=== PATIENT | male | born 1955 | race Caucasian/White ===

== ENCOUNTER 2020-07-16 20:01 | Inpatient (IN) | payer MEDICARE, MEDICAID, SELFPAY ==
[2020-07-16] VITALS (25 sets, daily range): BP systolic 71–165; BP diastolic 44–89; PULSE 0–122; RESP 0–21; TEMP 35; O2SAT 10–100
--- NOTE | ~2020-07-16 | CT_ITS ---
EXAMINATION: CT brain wo con INDICATION: Cardiac arrest COMPARISON: None TECHNIQUE: Standard unenhanced head CT. The dose-length product (DLP) was 681.00 mGy-cm. The mA was a djusted according to patient size. Iterative reconstruction technique was employed. FINDINGS: There is no acute intraparenchymal hemorrhage. No evidence of mass lesion. No evidence of a cute infarction. There is mild periventricular and subcortical hypodensity probably related to small vessel ischemic disease. There is mild prominence of the sulci and ventricles related to cerebral atr ophy. Intracranial calcified cerebral atherosclerosis is noted. There are no extra-axial collections. There is no mass effect or midline shift. Phthisis bulbi of the right globe is noted. There is comp lete opacification of the left sphenoid sinus and moderate opacification of the remaining paranasal s inuses. IMPRESSION: 1. No acute intracranial abnormality. 2. Sinus disease. Reviewed, dictated and finalized at location A.
--- NOTE | ~2020-07-16 | XR_ITS ---
EXAMINATION: XR chest 1V portable EXAM DATE: 07/19/2020 06:00 INDICATION: Cardiac arrest. TECHNIQUE: Portable AP frontal chest x-ray was obtained. Comparison is made to prior examination from 07/18/2020. FINDINGS: Endotracheal tube tip is 4 centimeters above the rakesh (ideal range is between 2 to 5 cm). Feeding tube is in position. There is right IJ venous line. Again there is moderate amount of bibasilar indistinct reticulation. Some more confluence in the infr ahilar regions. Probably edema and/or pneumonia. There is no pneumothorax suspected. Cardiomedia stinal silhouette is normal. The bones and soft tissues are unremarkable. IMPRESSION: 1. Line(s) and tube(s) in position. 2. Moderate amount of basilar indistinct reticulation with infrahilar confluence. Consider pneumonia and/or edema. Reviewed, dictated and finalized at location A. IMPRESSION: 1. Line(s) and tube(s) in position. 2. Moderate amount of basilar indistinct reticulation with infrahilar confluen ce. Consider pneumonia and/or edema.
--- NOTE | ~2020-07-16 | XR_ITS ---
EXAMINATION: XR chest 1V portable EXAM DATE: 07/20/2020 06:29 INDICATION: Cardiac arrest. TECHNIQUE: Portable AP frontal chest x-ray was obtained. Comparison is made to prior examination from 07/19, 07/18/2020. FINDINGS: Endotracheal tube tip is 4 centimeters above the rakesh (ideal range is between 2 to 5 cm) . Feeding tube is in position. There is right IJ venous line. There is moderate amount of bibasilar indistinct reticulation. Some more confluence in the infrahilar regions. Probably edema and/or pneumonia. There is no pneumothorax suspected. Cardiomediastinal silhouette is normal. The bones and soft tissues are unremarkable. There is no significant interval change. IMPRESSION: 1. Line(s) and tube(s) in position. 2. Moderate amount of basilar indistinct reticulation with infrahilar confluence. Consider pneumonia and/or edema. Reviewed, dictated and finalized at location A. IMPRESSION: 1. Line(s) and tube(s) in position. 2. Moderate amount of basilar indistinct reticulation with infrahilar confluen ce. Consider pneumonia and/or edema.
--- NOTE | ~2020-07-16 | XR_ITS ---
EXAMINATION: XR chest ET placement, XR abdomen NG/feed tube insert DATE: 07/16/2020 20:30 INDICATION: CODE BLUE. Endotracheal tube and orogastric tube placement. TECHNIQUE: 1. Frontal view of the chest was obtained. 2. Supine frontal view of the abdomen was obtained. COMPARISON: Chest radiograph dated 09/15/2018 FINDINGS: Chest: Endotracheal tube tip 1.3 cm above the rakesh. Mildly increased perihilar interstitial pattern with a dditional streaky airspace opacities in the left lower lung zone. No pleural effusion or pneumothorax . Cardiomegaly. Abdomen: Nasogastric tube tip in proximal side port in the body of the stomach. High attenuation material in t he epigastric region. Multiple gas-filled but not frankly dilated loops of bowel clustered in the alejandra tral abdomen with increased density at the flanks suggestive of ascites. IMPRESSION: 1. The tracheal tube and nasogastric tube in expected positions. 2. Opacities in the perihilar regions and left lower lung zone which could represent mild pulmonary e karen, atelectasis, pneumonia or some combination thereof. 3. Appearance suggesting ascites in the abdomen. Reviewed, dictated and finalized at location A. IMPRESSION: 1. The tracheal tube and nasogastric tube in expected positions. 2. Opacities in the perihilar regions and left lower lung zone which could repr esent mild pulmonary edema, atelectasis, pneumonia or some combination thereof. 3. Appearance suggesting ascites in the abdomen.
--- NOTE | ~2020-07-16 | XR_ITS ---
EXAMINATION: XR chest port-a-cath/central DATE: 07/16/2020 21:07 INDICATION: Central line placement TECHNIQUE: frontal view of the chest was obtained. COMPARISON: Chest radiograph dated 07/16/2020 at 8:23 PM FINDINGS: Right internal jugular central venous catheter with distal tip in the high right atrium. Endotracheal tube tip 3.3 cm from the rakesh. Nasogastric tube extends below the left hemidiaphragm with distal tip collimated off the study. Improvement in the prior perihilar opacities. Residual streaky airspace opacities in the left lower l ashwin zone. No pleural effusion or pneumothorax. The cardiomediastinal silhouette is normal. IMPRESSION: 1. Right internal jugular central venous catheter with tip in the high right atrium. No pneumothorax. 2. Improvement in perihilar edema with residual streaky opacities in the left lower lung zone which c ould represent atelectasis, aspiration or pneumonia. Reviewed, dictated and finalized at location A. IMPRESSION: 1. Right internal jugular central venous catheter with tip in the high right at rium. No pneumothorax. 2. Improvement in perihilar edema with residual streaky opacities in the left l ower lung zone which could represent atelectasis, aspiration or pneumonia.
--- NOTE | ~2020-07-16 | XR_ITS ---
EXAMINATION: XR chest 1V portable EXAM DATE: 07/18/2020 05:27 INDICATION: Cardiac arrest. Respiratory failure. TECHNIQUE: Portable AP frontal chest x-ray was obtained. Comparison is made to prior examination from 07/16/2020. FINDINGS: Endotracheal tube tip is 3 centimeters above the rakesh (ideal range is between 2 to 5 cm). There is a nasogastric tube seen with tip collimated off the study, but below the left hemidiaphrag m. There is a right-sided IJ venous line. Interval development of moderate amount of bilateral indistinct reticulation and development of small left pleural effusion. There is no pneumothorax suspected. The cardiomediastinal silhouette is prominent but magnified on this AP technique. The bones and soft tissues are unremarkable. IMPRESSION: 1. Line(s) and tube(s) in position. 2. Development of moderate bilateral indistinct reticulation, acute edema and/or pneumonia. 3. Development of small left pleural effusion. Reviewed, dictated and finalized at location B. IMPRESSION: 1. Line(s) and tube(s) in position. 2. Development of moderate bilateral indistinct reticulation, acute edema and/ or pneumonia. 3. Development of small left pleural effusion.
--- NOTE | 2020-07-16 20:13 | ED.GENADULT ---
HPI - General Adult General Chief complaint: Cardiac Arrest/CPR Stated complaint: cardiac arrest History of Present Illness HPI narrative: Patient is a 64-year-old male who presents ER as a cardiac arrest from his intermediate. Patient was eating a hamburger when he began to start choking. His roommate went and contacted intermediate staff who then went in to try to help him. Patient then went into cardiac arrest. EMS arrived after patient had been in cardiac arrest for 20 to 30 minutes. Upon arrival here patient has had 40 minutes of downtime. She has had several rounds epinephrine and is also been intubated in the field by EMS. Patient is unresponsive at this time and receiving CPR. Accu-Chek in 130s for EMS. There is no paperwork her name on the individual when he had originally been sent with EMS. After contacting intermediate we found out patient has history of liver failure and also has hepatocellular carcinoma. We are attempting to contact family. Their was no CODE STATUS communicated. Related Data Home Medications Medication Instructions Recorded Confirmed benztropine 1 mg PO HS 07/17/20 07/17/20 calcium carbonate 500 mg PO DAILY 07/17/20 07/17/20 calcium carbonate-vitamin D3 1 tablet PO DAILY 07/17/20 07/17/20 [Os-Rian 500 + D3] cholecalciferol (vitamin D3) 25 mcg PO DAILY 07/17/20 07/17/20 [Vitamin D3] haloperidol decanoate 150 mg IM MONTHLY 07/17/20 07/17/20 insulin glargine [Lantus U-100 16 unit SUBCUT 07/17/20 07/17/20 Insulin] insulin lispro 5 unit SUBCUT TIDWMEAL 07/17/20 07/17/20 lactulose [Enulose] 67.5 g PO TID 07/17/20 07/17/20 lisinopril 10 mg PO DAILY 07/17/20 07/17/20 melatonin 9 mg PO 07/17/20 07/17/20 pantoprazole 20 mg PO QAM 07/17/20 07/17/20 potassium chloride 40 meq PO DAILY 07/17/20 07/17/20 propranolol 60 mg PO DAILY 07/17/20 07/17/20 rifaximin [Xifaxan] 550 mg PO BID 07/17/20 07/17/20 risperidone 4 mg PO 07/17/20 07/17/20 sennosides [senna] 8.6 mg PO HS PRN 07/17/20 07/17/20 tamsulosin 0.4 mg PO HS 07/17/20 07/17/20 Allergies Allergy/AdvReac Type Severity Reaction Status Date / Time codeine Allergy Unknown Unknown Verified 07/16/20 21:36 Review of Systems Review of Systems: ROS unobtainable: Yes unobtainable due to endotracheal tube PMFSH Past Medical History Medical History (Updated 07/17/20 @ 06:59 by Matt Goins MD) Chronic anemia Hepatitis C Hepatocellular carcinoma Liver failure Thrombocytopenia Umbilical hernia Surgical History Surgical History Surgical history unknown Family History Family History Other Unknown family medical history Social History Social History Social History: the patient's family history surgical history and social history are unobtainable. He is intubated and unresponsive. Smoking status: Unknown if ever smoked Alcohol intake: unknown Substance use: unknown Exam Narrative: Exam Narrative: GENERAL: Chronically ill-appearing, well-nourished, and unresponsive.. HEAD: Normocephalic, atraumatic. EYES: Left pupil fixed and dilated. Right pupil scarred. No extraocular movements. ENT: Mucous membranes moist. CHEST: Clear to auscultation with assisted ventilation. No respiratory distress. HEART: No pulses. Cool and pale extremities. ABDOMEN: Firm and distended with pitting edema to the lower abdomen. EXTREMITIES: No deformity or spontaneous movement. 2+ edema. 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 Course Vital Signs Vital signs: Vital Signs Pulse Rate 0 L 07/16/20 20:05 Respiratory Rate 0 L 07/16/20 20:05 Pulse Oximetry 10 L 07/16/20 20:05 Temperature 90.4 F L 07/17/20 06:00 Pulse Rate 67 07/17/20 06:51 Respiratory Rate 17 07/17/20 06:00 Blood Pressure 108/66 07/17/20 06:51 Pulse Oximetry 100 07/17/20 06:00
--- NOTE | 2020-07-16 20:57 | ECG_ITS ---
Measurements Intervals [place] Rate: 43 P: 17 WI: 147 QRS: 14 QRSD: 101 T: -6 QT: 498 QTc: 425 Interpretive Statements SINUS BRADYCARDIA INCOMPLETE RIGHT BUNDLE BRANCH BLOCK LOW QRS VOLTAGE- DIFFUSE LEADS BORDERLINE T WAVE ABNORMALITY- INFERIOR LEADS ABNORMAL ECG Electronically Signed On 07-17-2020 7:01:46 CDT by Jem Linton D.O.
[2020-07-16 21:08] LABS: Basophils Absolute Auto 0.1 K/mm3 (0.0-0.1); Basophils Percent Auto 0.5 % (0.2-1.2); Eosinophils Absolute Auto 0.2 K/mm3 (0-0.3); Eosinophils Percent Auto 0.8 % (0-4.4); Immature Granulocyte Absolute 1.05 K/mm3 (0.00-0.031); Immature Granulocyte Percent A 5.4 % (0-0.5); Immature Platelet Fraction Pct 2.4 % (0.9-11.2); Lymphocytes Absolute Auto 2.83 K/mm3 (0.9-3.2); Lymphocytes Percent Auto 14.6 % (18.3-44.2); Mean Corpuscular HGB Conc 33.3 g/dl (32-36); Mean Corpuscular Hemoglobin 31.1 pg (26-34); Mean Corpuscular Volume 93.3 fl (80-100); Mean Platelet Volume 9.1 fl (7.4-10.4); Monocytes Absolute Auto 0.7 K/mm3 (0.1-0.6); Monocytes Percent Auto 3.4 % (2.6-8.5); Neutrophils Absolute Auto 14.6 K/mm3 (1.3-6.7); Neutrophils Percent Auto 75.3 % (45.5-73.1); Nucleated Red Blood Cells Absolute Auto 0.1 K/mm3 (0.0-0.012); Nucleated Red Blood Cells Perc 0.3 % (0.0-0.2); Platelet Count Result 59 k/mm3 (150-375); Red Blood Count 3.86 M/mm3 (4.6-6.20); White Blood Count 19.4 K/mm3 (4.5-10.0)
[2020-07-16 21:15] LABS: INR 2.9; Prothrombin Time 30.1 Seconds (11.1-14.7)
[2020-07-16 21:16] LABS: Partial Thromboplastin Time 59.1 SECONDS (22.3-36.8)
[2020-07-16 21:19] LABS: Lactic Acid Reflex 7.7 mmol/L (0.7-2.1)
[2020-07-16 21:34] LABS: Alanine Aminotransferase 62 U/L (4-50); Albumin Level 1.9 g/dL (3.5-5.1); Alkaline Phosphatase 190 U/L (38-126); Anion Gap 11 mmol/L (8-16); Aspartate Amino Transferase 224 U/L (17-59); Bilirubin Direct 0.2 mg/dL (0-0.3); Bilirubin,Total 3.3 mg/dL (0.2-1.3); Blood Urea Nitrogen 13 mg/dL (9-20); Calcium 6.9 mg/dL (8.4-10.2); Carbon Dioxide 19 mmol/L (22-30); Chloride 99 mmol/L (98-107); Estimated CRCL calculation 92 ml/min; Estimated Glomerular Filt Rate > 60; Glucose 92 mg/dL (75-110); Potassium 4.5 mmol/L (3.4-5.0); Sodium 129 mmol/L (137-145)
[2020-07-16] MEDS: NOREPINEPHRINE 8 MG/D5W 250 ML 8 MG/250 ML BAG 9.4 MG IV CONT (21:38)
[2020-07-16 21:41] LABS: Alveolar/Arterial O2 Gradient 318.6 mmHg; Base Excess ABG -10.2 mEq/l (+/-2.0); Carboxyhemoglobin 0.7 % THb (0-2.0); Fractional Inspired Oxygen 100 %; HCO3 ABG 15.2 mEq/l (22.0-26.0); Methemoglobin ABG 0.5 %THb (0-1.5); Oxygen Content ABG 18.6 %vol (16.0-22.0); Oxygen Saturation ABG 99.7 % (95.0-100.0); Oxyhemoglobin 98.1 % THb (90.0-100.0); PCO2 ABG 32.1 mmHg (35.0-45.0); PO2 ABG 362.3 mmHg (80.0-100.0); PO2 FiO2 Ratio Arterial Blood 3.62 %; Reduced Hemoglobin 0.7 %THb (0-5.0); Total Hemoglobin 12.8 g/dL (12.0-18.0); pH ABG 7.292 (7.350-7.450)
[2020-07-16 21:42] LABS: Device VENTILATOR; Modified Allen's Test Pass; Site Drawn LEFT RADIAL
[2020-07-16 21:43] LABS: Arterial Blood Gas PEEP 5 cmH2O; Arterial Blood Gas Tidal Volume 500 ml; Arterial Blood Gas Vent Mode CMV; Arterial Blood Gas Ventilator rate 14 /MIN
[2020-07-16 21:45] LABS: Albumin Level 1.9 g/dL (3.5-5.1); Alkaline Phosphatase 186 U/L (38-126); Anion Gap 12 mmol/L (8-16); Aspartate Amino Transferase 221 U/L (17-59); Bilirubin,Total 3.4 mg/dL (0.2-1.3); Blood Urea Nitrogen 13 mg/dL (9-20); Carbon Dioxide 19 mmol/L (22-30); Chloride 99 mmol/L (98-107); Creatine Kinase 280 U/L (55-170); Estimated CRCL calculation 92 ml/min; Estimated Glomerular Filt Rate > 60; Glucose 93 mg/dL (75-110); Magnesium 1.9 mg/dL (1.6-2.3); Potassium 4.5 mmol/L (3.4-5.0); Sodium 130 mmol/L (137-145)
[2020-07-16 21:47] LABS: Alanine Aminotransferase 64 U/L (4-50)
[2020-07-16 21:50] LABS: Troponin I 0.013 ng/mL (0.000-0.034)
[2020-07-16 21:53] LABS: Glucose Point of Care 460 (65-105)
[2020-07-16 22:07] LABS: Ammonia 87 umol/L (9-30)
[2020-07-16 22:20] LABS: Lactic Acid Reflex 5.6 mmol/L (0.7-2.1)
--- NOTE | 2020-07-16 22:33 | PC.NURSE ---
late entry see code sheet
[2020-07-16] MEDS: NOREPINEPHRINE 8 MG/D5W 250 ML 8 MG/250 ML BAG 18.8 MG IV CONT (23:00)
--- NOTE | 2020-07-16 23:00 | ADMGEN ---
This patient, Tip Monroy, was admitted to Intensive Care Unit-6. Patient/family oriented to hospital policies and general routines including ID bracelet, bed and alarms, visiting hours, pain management, procedures, bathroom and other care routines, personal items, smoking policy, room service/diet, and visiting hours. Valuables list has been completed. Information on how to activate the Rapid Response Team has been discussed. Patient/Family are encouraged to report perceived risks to care and to ask questions if they do not understand what they are told or what they should do.
[2020-07-17] VITALS (48 sets, daily range): BP systolic 100–148; BP diastolic 36–131; PULSE 36–81; RESP 12–32; TEMP 32.1–34.8; O2SAT 94–100; BMI 35.4
[2020-07-17 00:01] LABS: Reflex Lactic Acid Yes or No Add Lactic
[2020-07-17 00:14] LABS: Glucose Point of Care 122 (65-105)
[2020-07-17 00:28] LABS: Lactic Acid 3.7 mmol/L (0.7-2.1)
--- NOTE | 2020-07-17 02:27 | PM.IMHP ---
H&P: HPI History of Present Illness Date/Time: 07/17/20 00:30 Chief complaint: Cardiac arrest after choking Narrative: Tip Monroy is a 64 year old male with a past medical history of hepatitis C, cirrhosis and hepatocellular carcinoma who presented to the ER via EMS from [facility] due to an episode of aspiration resulting in cardiac arrest. The patient was eating a cheeseburger when he choked. His roommate called nursing staff who tried to assist him. The patient went into cardiac arrest. When EMS arrived [facility] the [facility] the patient had had a down time of about 20-30 minutes. On arrival to the ER the patient had been down for approximately 40 minutes. He had several rounds of epinephrine and was intubated in the field after EMS removed cheese burger from the patient's airway with forceps. The patient received 2 rounds of epinephrine in the ER without change in his rhythm. The patient arrived to our facility without of pulse. the patient had a couple rounds of CPR in the ER with return of perfusing rhythm. The patient then became hypotensive and was initiated on Levophed. The patient's heart rate dropped between 35 and 40 in the ER and has remained low. Epinephrine was added to the patient's medications trying to increase his heart rate. He is heart rate remained low at 35. Subsequently dopamine has been ordered and will titrate Levophed downward an increase dopamine an effort to bring patient's heart rate up. The patient is known to have diffuse bleeding from around IJ site, he has bloody drainage from his OG tube as well. Nursing staff continues to suction bits of hamburger from the patient's nose and oropharynx. Review of Systems Review of Systems: ROS unobtainable: Yes unobtainable due to endotracheal tube and unobtainable due to medical condition ( anoxic brain injury) [facility] Past Medical History Medical History (Updated 07/17/20 @ 03:32 by Melinda Ortega DO) Chronic anemia Hepatitis C Hepatocellular carcinoma Liver failure Thrombocytopenia Umbilical hernia Surgical History Surgical History Surgical history unknown Family History Family History Other Unknown family medical history Social History Social History Social History: the patient's family history surgical history and social history are unobtainable. He is intubated and unresponsive. Smoking status: Unknown if ever smoked Alcohol intake: unknown Substance use: unknown Meds Home Medications and Allergies Home Medications Medication Instructions Recorded Confirmed Type cholecalciferol (vitamin D3) 25 mcg PO DAILY 07/17/20 07/17/20 History [Vitamin D3] insulin glargine [Lantus U-100 16 unit SUBCUT HS 07/17/20 07/17/20 History Insulin] insulin lispro 5 unit SUBCUT TIDWMEAL 07/17/20 07/17/20 History propranolol 60 mg PO DAILY 07/17/20 07/17/20 History rifaximin [Xifaxan] 550 mg PO BID 07/17/20 07/17/20 History risperidone 4 mg PO HS 07/17/20 07/17/20 History sennosides [senna] 8.6 mg PO HS PRN 07/17/20 07/17/20 History tamsulosin 0.4 mg PO HS 07/17/20 07/17/20 History Allergies Allergy/AdvReac Type Severity Reaction Status Date / Time codeine Allergy Unknown Unknown Verified 07/16/20 21:36 Vital Signs Vital Signs - 24 hr 07/16/20 20:05 07/16/20 20:08 07/16/20 20:10 Pulse Rate 0 L 105 H 122 H Respiratory Rate 0 L 21 H 20 Blood Pressure 130/89 Pulse Oximetry 10 L 07/16/20 20:15 07/16/20 20:16 07/16/20 20:18 Pulse Rate 113 H 111 H 106 H Respiratory Rate 16 15 15 Blood Pressure 79/68 L 113/78 Pulse Oximetry 100 07/16/20 20:30 07/16/20 20:31 07/16/20 20:36 Pulse Rate 60 60 56 L Respiratory Rate 14 16 14 Blood Pressure 79/54 L 74/50 L Pulse Oximetry 100 100 100 07/16/20 20:40 07/16/20 20:45 07/16/20 2
[2020-07-17] MEDS: DOPamine 400 MG/D5W 250 ML 400 MG/250 ML BAG 7.4 MG IV CONT (03:02)
[2020-07-17 03:32] LABS: Hematocrit 32.3 % (42.0-52.0); Hemoglobin 11.5 g/dL (14.0-18.0); Immature Platelet Fraction Pct 2.4 % (0.9-11.2); Mean Corpuscular HGB Conc 35.6 g/dl (32-36); Mean Corpuscular Hemoglobin 31.9 pg (26-34); Mean Corpuscular Volume 89.7 fl (80-100); Mean Platelet Volume 8.8 fl (7.4-10.4); Platelet Count Result 77 k/mm3 (150-375); Red Cell Distribution Width 17.2 % (11.5-14.5); White Blood Count 18.8 K/mm3 (4.5-10.0)
--- NOTE | 2020-07-17 03:33 | P.PCNBED_ITS ---
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 Despite multiple full attempts with ultrasound guidance a I was unable to obtain arterial access. Subsequently the procedure was converted to a left femoral arterial line. Although I obtained arterial access on multiple attempts the guidewire would not feed on the 1st 2 attempts. On the final attempt guidewire fed without difficulty and arterial line was placed over guidewire. Patient had brisk return of arterial blood. The patient's arterial blood pressures are correlating with his cuff pressures. Line was secured with suture as discussed above. An attempt was made to who maintained sterile field but due to complicated procedure course sterile field was contaminated prior to conclusion of procedure.
[2020-07-17 03:42] LABS: Creatine Kinase 1422 U/L (55-170); Magnesium 1.7 mg/dL (1.6-2.3)
[2020-07-17 03:43] LABS: INR 3.7; Lactic Acid Reflex 3.5 mmol/L (0.7-2.1); Prothrombin Time 35.8 Seconds (11.1-14.7)
[2020-07-17 03:55] LABS: Glucose Point of Care 108 (65-105)
[2020-07-17 03:56] LABS: Fibrinogen 75 mg/dl (215-510)
[2020-07-17 04:18] LABS: D Dimer > 20.00 ug/mL (<0.48)
--- NOTE | 2020-07-17 05:00 | ECG_ITS ---
Measurements Intervals [place] Rate: 54 P: RI: 0 QRS: 19 QRSD: 93 T: -7 QT: 479 QTc: 456 Interpretive Statements SINUS BRADYCARDIA LOW QRS VOLTAGE IN LIMB LEADS BORDERLINE T WAVE ABNORMALITY- INFERIOR LEADS PROLONGED QT INTERVAL BASELINE WANDER- V4 ABNORMAL ECG Electronically Signed On 07-17-2020 8:36:22 CDT by Jem Linton D.O.
[2020-07-17 05:07] LABS: Glucose Point of Care 137 (65-105)
[2020-07-17] MEDS: CENTRAL LINE FLUSH 10 ML IV PUSH ×4 (06:06→20:05)
[2020-07-17 06:13] LABS: Alveolar/Arterial O2 Gradient 423.8 mmHg; Base Excess ABG -9.1 mEq/l (+/-2.0); Carboxyhemoglobin 0.3 % THb (0-2.0); Fractional Inspired Oxygen 90 %; HCO3 ABG 17.9 mEq/l (22.0-26.0); Methemoglobin ABG 0.5 %THb (0-1.5); Oxygen Content ABG 17.6 %vol (16.0-22.0); Oxygen Saturation ABG 98.9 % (95.0-100.0); Oxyhemoglobin 97.5 % THb (90.0-100.0); PCO2 ABG 42.9 mmHg (35.0-45.0); PO2 ABG 173.9 mmHg (80.0-100.0); PO2 FiO2 Ratio Arterial Blood 1.93 %; Reduced Hemoglobin 1.7 %THb (0-5.0); Site Drawn ARTLINE; Total Hemoglobin 12.6 g/dL (12.0-18.0); pH ABG 7.238 (7.350-7.450)
[2020-07-17 06:14] LABS: Arterial Blood Gas PEEP 5 cmH2O; Arterial Blood Gas Tidal Volume 450 ml; Arterial Blood Gas Vent Mode CMV; Arterial Blood Gas Ventilator rate 14 /MIN; Device VENTILATOR
[2020-07-17 06:43] LABS: Glucose Point of Care 108 (65-105)
[2020-07-17] MEDS: SODIUM BICARBONATE 8.4% 100 MEQ in WATER, STERILE FOR INJECTION 1,000 ML 75 MEQ IV CONT (08:15)
[2020-07-17 08:22] LABS: Glucose Point of Care 100 (65-105)
[2020-07-17 08:44] LABS: Hematocrit 31.6 % (42.0-52.0); Hemoglobin 11.1 g/dL (14.0-18.0); Immature Platelet Fraction Pct 3.6 % (0.9-11.2); Mean Corpuscular HGB Conc 35.1 g/dl (32-36); Mean Corpuscular Volume 88.3 fl (80-100); Mean Platelet Volume 9.8 fl (7.4-10.4); Platelet Count Result 68 k/mm3 (150-375); Red Blood Count 3.58 M/mm3 (4.6-6.20); Red Cell Distribution Width 17.2 % (11.5-14.5); White Blood Count 15.5 K/mm3 (4.5-10.0)
[2020-07-17] MEDS: SODIUM CHLORIDE 0.9% IV 1,000 ML 999 ML IV CONT (08:45)
[2020-07-17] MEDS: ALBUMIN HUMAN 25% 12.5 GM/50ML 50 ML IVPB ×3 (08:45→20:04)
[2020-07-17 08:53] LABS: INR 3.9; Prothrombin Time 37.6 Seconds (11.1-14.7)
[2020-07-17 08:54] LABS: Partial Thromboplastin Time 49.6 SECONDS (22.3-36.8)
[2020-07-17 08:55] LABS: Alanine Aminotransferase 85 U/L (4-50); Albumin Level 1.7 g/dL (3.5-5.1); Alkaline Phosphatase 108 U/L (38-126); Anion Gap 6 mmol/L (8-16); Aspartate Amino Transferase 314 U/L (17-59); Bilirubin,Total 4.6 mg/dL (0.2-1.3); Blood Urea Nitrogen 20 mg/dL (9-20); Calcium 6.8 mg/dL (8.4-10.2); Carbon Dioxide 22 mmol/L (22-30); Chloride 99 mmol/L (98-107); Estimated CRCL calculation 76 ml/min; Estimated Glomerular Filt Rate > 60; Glucose 126 mg/dL (75-110); Magnesium 1.6 mg/dL (1.6-2.3); Phosphorus 4.8 mg/dL (2.5-4.5); Potassium 4.2 mmol/L (3.4-5.0); Sodium 127 mmol/L (137-145)
[2020-07-17] MEDS: PHYTONADIONE ADULT INJ 10 MG in DEXTROSE 5% IN WATER 50 ML 100 MG IVPB (08:58)
[2020-07-17 08:59] LABS: Lactic Acid Reflex 4.2 mmol/L (0.7-2.1)
[2020-07-17 09:05] LABS: Creatine Kinase 2375 U/L (55-170)
[2020-07-17] MEDS: PANTOPRAZOLE SODIUM IV 40 MG VIAL IV PUSH ×2 (09:13→20:06)
[2020-07-17 09:15] LABS: Alveolar/Arterial O2 Gradient 282.2 mmHg; Base Excess ABG -7.1 mEq/l (+/-2.0); Carboxyhemoglobin 0.2 % THb (0-2.0); Fractional Inspired Oxygen 60 %; HCO3 ABG 19.6 mEq/l (22.0-26.0); Methemoglobin ABG 0.5 %THb (0-1.5); Oxygen Content ABG 15.2 %vol (16.0-22.0); Oxygen Saturation ABG 96.4 % (95.0-100.0); Oxyhemoglobin 94.6 % THb (90.0-100.0); PCO2 ABG 44.4 mmHg (35.0-45.0); PO2 ABG 96.8 mmHg (80.0-100.0); PO2 FiO2 Ratio Arterial Blood 1.61 %; Reduced Hemoglobin 4.7 %THb (0-5.0); Total Hemoglobin 11.3 g/dL (12.0-18.0)
[2020-07-17 09:17] LABS: Arterial Blood Gas PEEP 5 cmH2O; Arterial Blood Gas Vent Mode CMV; Arterial Blood Gas Ventilator rate 14 /MIN; Device VENTILATOR; Site Drawn ARTLINE; pH ABG 7.263 (7.350-7.450)
[2020-07-17 09:18] LABS: Arterial Blood Gas Tidal Volume 450 ml
[2020-07-17 09:25] LABS: Glucose Point of Care 125 (65-105)
[2020-07-17 10:23] LABS: Glucose Point of Care 138 (65-105)
[2020-07-17] MEDS: levETIRAcetam IV 750 MG in DEXTROSE 5% 100 ML 430 MG IVPB ×2 (10:25→20:04)
[2020-07-17 11:05] LABS: Glucose Point of Care 147 (65-105)
[2020-07-17 12:08] LABS: Glucose Point of Care 141 (65-105)
--- NOTE | 2020-07-17 13:00 | ECG_ITS ---
Measurements Intervals [place] Rate: 67 P: 19 UT: 156 QRS: 6 QRSD: 103 T: -8 QT: 458 QTc: 485 Interpretive Statements SINUS RHYTHM DELAYED PRECORDIAL R/S TRANSITION MINIMAL Q WAVES- HIGH LATERAL LEADS BORDERLINE T WAVE ABNORMALITY- INFERIOR LEADS BORDERLINE ECG Electronically Signed On 07-17-2020 13:43:40 CDT by Jem Linton D.O.
[2020-07-17 13:06] LABS: Glucose Point of Care 107 (65-105)
--- NOTE | 2020-07-17 13:21 | WPDCNINT ---
Assessment and Plan Assessment and plan (1) Cardiac arrest with successful resuscitation: Code(s): I46.9 - Cardiac arrest, cause unspecified Status: Acute Assessment and Plan: cardiac arrest likely related to choking/asphyxia / airway obstruction - patient had ROSC after approximately 40 minutes down time - currently on hypothermia protocol, has a central line and arterial line - CT head did not show any acute intracranial abnormalities - patient has been having intermittent myoclonic jerking, started Keppra (2) Acute respiratory failure: Code(s): J96.00 - Acute respiratory failure, unspecified whether with hypoxia or hypercapnia Status: Acute Assessment and Plan: acute respiratory failure likely related to airway obstruction, asphyxia from choking on hamburger - patient currently intubated on CMV mode of ventilation, peep of 5, 90% FiO2, will wean FiO2 to maintain O2 sats greater than 92%. - Chest x-ray and ABGs reviewed - patient is not on any sedation (3) Shock: Code(s): R57.9 - Shock, unspecified Status: Acute Assessment and Plan: patient was in shock/ hypotension and bradycardia - was started overnight on epinephrine and dopamine, both infusions were on a very low dose. - Past bedside RN to increase dopamine and turn of the epinephrine - will wean dopamine to maintain mean arterial pressure is greater than 65 mmHg and maintain heart rate greater than 50 beats per minute (4) Upper GI hemorrhage: Code(s): K92.2 - Gastrointestinal hemorrhage, unspecified Status: Acute Assessment and Plan: patient with coffee-ground drainage from the OG tube, could be related to to coagulopathy and DIC - continue PPI q.12 hours IV (5) Coagulopathy: Code(s): D68.9 - Coagulation defect, unspecified Status: Acute Assessment and Plan: coagulopathy with elevated INR, low platelet counts, low fibrinogen level likely related to acute event as well as liver dysfunction from cirrhosis/hepatocellular carcinoma - will transfuse cryoprecipitate, FFP, will also give vitamin K 10 mg IVPB - patient has been oozing from his central line and arterial line, Which has improved since transfusion of blood products Additional Plan discussed with his brother Corona, updated with his condition and plan of care. Explained to him the process of hypothermia protocol, he is also aware that patient is having myoclonic jerks which is an ominous sign post cardiac arrest. Will continue current management until patient is rewarmed, off sedation and will evaluate mental status by allowing Him to wake up. I answered all questions code status: Full code critical care time spent: 49 minutes Due to a high probability of clinically significant, life threatening deterioration, the patient required my highest level of preparedness to intervene emergently and I personally spent this critical care time directly and personally managing the patient. This critical care time included obtaining a history; examining the patient; pulse oximetry; ordering and review of studies; arranging urgent treatment with development of a management plan; evaluation of patient's response to treatment; frequent reassessment; and discussions with other providers. It was exclusive of separately billable procedures and treating other patients and teaching time. Please see Assessment and Plan section and the rest of the note for further information on patient assessment and treatment Mainframe Analyst Consult Note Consult date: 07/17/20 Time Seen: 07:08 Reason for consult: cardiopulmonary arrest after choking HPI: Tip Monroy is a 64 year old male with past medical history of hepatitis-C, hepatocellular carcinoma, liver failure, thrombocytopenia, chronic anemia presented to the ED via EMS from [facility] after he choked on a cheeseburger, status post respiratory and cardiac arrest. At the [facility] p
[2020-07-17 14:03] LABS: Glucose Point of Care 100 (65-105)
[2020-07-17 15:02] LABS: Glucose Point of Care 97 (65-105)
[2020-07-17 15:51] LABS: Lactic Acid Reflex 4.8 mmol/L (0.7-2.1)
[2020-07-17 15:56] LABS: Creatine Kinase 2224 U/L (55-170)
[2020-07-17 15:58] LABS: Amphetamine Screen Urine Negative (Negative); Barbiturate Screen Urine Negative (Negative); Benzodiazepines Screen Urine Negative (Negative); Cannabinoid Screen Urine Negative (Negative); Cocaine Screen Urine Negative (Negative); Methadone Screen Urine Negative (Negative); Opiate Screen Urine Negative (Negative); Phencyclidine Screen Urine Negative (Negative)
[2020-07-17 16:20] LABS: Glucose Point of Care 86 (65-105)
[2020-07-17 17:26] LABS: Glucose Point of Care 69 (65-105)
[2020-07-17 17:59] LABS: Glucose Point of Care 74 (65-105)
[2020-07-17 18:13] LABS: Glucose Point of Care 78 (65-105)
[2020-07-17 18:30] LABS: Reflex Lactic Acid Yes or No Add Lactic
--- NOTE | 2020-07-17 19:08 | PM.IMPN ---
Progress Note: A&P Assessment and Plan (1) Cardiac arrest with successful resuscitation: Code(s): I46.9 - Cardiac arrest, cause unspecified Status: Acute Assessment and Plan: Patient had prolonged down time of 40+ minutes before ROSC obtained. Patient currently undergoing cooling protocol. He will be performed later tonight. Prognosis is poor. Continue current management. (2) Shock: Code(s): R57.9 - Shock, unspecified Status: Acute Assessment and Plan: Hypotension to cardiogenic shock. Patient currently on dopamine at low dose. Epinephrine and norepinephrine has been weaned off. Currently on IV fluids with sodium bicarb in albumin. Blood pressure remains stable. Continue to wean dopamine as blood pressure tolerates. Heart rate is improved as well with dopamine. (3) Acute respiratory failure: Code(s): J96.00 - Acute respiratory failure, unspecified whether with hypoxia or hypercapnia Status: Acute Assessment and Plan: Patient probably has aspiration pneumonia. Chest x-ray reviewed. Was on Zosyn but this has stopped. ABG showing normal values except for low pH probably metabolic process from the lactic acidosis. Continue current vent settings. Resume Zosyn. (4) Upper GI hemorrhage: Code(s): K92.2 - Gastrointestinal hemorrhage, unspecified Status: Acute Assessment and Plan: NG tube output concerning for upper GI bleed. patient on Protonix IV 40 mg Q12H. Monitor H&H closely. Transfuse as necessary. (5) Coagulopathy: Code(s): D68.9 - Coagulation defect, unspecified Status: Acute Assessment and Plan: Related to the cirrhosis. INR 3.9 today. D-dimer elevated and fibrinogen low. he also has thrombocytopenia. Some of these findings may be chronic related to his underlying liver failure. FFP And cryoprecipitate has been ordered. (6) Cirrhosis of liver with ascites: Qualifiers: Hepatic cirrhosis type: unspecified hepatic cirrhosis Qualified Code(s): K74.60 - Unspecified cirrhosis of liver; R18.8 - Other ascites Code(s): K74.60 - Unspecified cirrhosis of liver; R18.8 - Other ascites Status: Acute Assessment and Plan: Cirrhosis is due to hepatitis C and hepatocellular carcinoma which is complicating his current medical issues. He has elevated transaminases and bilirubin level probably acute on chronic with acute process being shock liver. Ammonia level elevated 87 but unclear this is acute or chronic. Hypoalbuminemia related to chronic cirrhosis causing marked edema. albumin ordered. Additional Plan Rhabdomyolysis - Total CK is peaked at 2375. Levels are trending downward now. Related to above. Continue to monitor. Subjective Date/time seen: 07/17/20 19:08 Interval history: 64yo male with hx of HepC, hepatocellular caarcinoma and cirrhosis here for respiratory and cardiac arrest after choking on food. Patient was down for 25-30 minutes prior to EMS arrival total down time about 40+ minutes). Patient intubated. He is not on sedation but is unresponsive. family is aware of the severity the patient's illness. Patient remains a full code. He is currently under cooling protocol but will be rewarming later tonight. Exam Narrative: Exam Narrative: 90.0 124/64 58 20 100% mv Gen - Intubated. Unresponsive. HEENT - left pupil is 3-4mm and not reactive. Right eye with scarred cornea. OG tube secured with reddish brown fluid in the tubing. ET tube secured. Chest - Bilateral inspiratory rhonchi anteriorly. CV - RRR S1/S2. Telemetry showing occasional Sinus bradycardia. Abd - distended and firm but not tense. Abdominal wall edema noted. No active bowel sounds. - Navarro secured draining clear yellow urine. Ext - Diffuse edema. Neuro - Unresponsive. Occasional myoclonic jerks that is not rhythmic. Skin - Feet are cool and dry. Objective Data Vital S
[2020-07-17 19:59] LABS: Glucose Point of Care 88 (65-105)
[2020-07-17] MEDS: SODIUM BICARBONATE 8.4% 100 MEQ in WATER, STERILE FOR INJECTION 1,000 ML IV CONT (20:05)
[2020-07-17 20:56] LABS: Glucose Point of Care 97 (65-105)
[2020-07-17 21:32] LABS: Alveolar/Arterial O2 Gradient 176.6 mmHg; Carboxyhemoglobin 0.3 % THb (0-2.0); Fractional Inspired Oxygen 45 %; HCO3 ABG 19.5 mEq/l (22.0-26.0); Methemoglobin ABG 0.6 %THb (0-1.5); Oxygen Content ABG 12.5 %vol (16.0-22.0); Oxygen Saturation ABG 97.8 % (95.0-100.0); Oxyhemoglobin 95.8 % THb (90.0-100.0); PCO2 ABG 33.6 mmHg (35.0-45.0); PO2 FiO2 Ratio Arterial Blood 2.36 %; Reduced Hemoglobin 3.3 %THb (0-5.0); Total Hemoglobin 9.1 g/dL (12.0-18.0); pH ABG 7.381 (7.350-7.450)
[2020-07-17 21:33] LABS: Device VENTILATOR; Site Drawn ARTLINE
[2020-07-17 21:34] LABS: Arterial Blood Gas PEEP 5 cmH2O; Arterial Blood Gas Tidal Volume 450 ml; Arterial Blood Gas Vent Mode CMV; Arterial Blood Gas Ventilator rate 14 /MIN
[2020-07-17 22:01] LABS: Glucose Point of Care 81 (65-105)
[2020-07-17 22:24] LABS: Hematocrit 22.1 % (42.0-52.0); Hemoglobin 7.8 g/dL (14.0-18.0); Immature Platelet Fraction Pct 2.2 % (0.9-11.2); Mean Corpuscular HGB Conc 35.3 g/dl (32-36); Mean Corpuscular Hemoglobin 30.8 pg (26-34); Mean Corpuscular Volume 87.4 fl (80-100); Mean Platelet Volume 9.2 fl (7.4-10.4); Red Blood Count 2.53 M/mm3 (4.6-6.20); Red Cell Distribution Width 16.9 % (11.5-14.5); White Blood Count 4.8 K/mm3 (4.5-10.0)
[2020-07-17 22:28] LABS: Platelet Count Result 17 k/mm3 (150-375)
[2020-07-17 22:32] LABS: INR 4.1; Partial Thromboplastin Time 46.2 SECONDS (22.3-36.8); Prothrombin Time 39.1 Seconds (11.1-14.7)
[2020-07-17 22:33] LABS: Creatine Kinase 1416 U/L (55-170)
[2020-07-17 22:34] LABS: Anion Gap 11 mmol/L (8-16); Blood Urea Nitrogen 23 mg/dL (9-20); Calcium 6.8 mg/dL (8.4-10.2); Carbon Dioxide 20 mmol/L (22-30); Chloride 97 mmol/L (98-107); Estimated CRCL calculation 70 ml/min; Estimated Glomerular Filt Rate > 60; Glucose 82 mg/dL (75-110); Magnesium 1.6 mg/dL (1.6-2.3); Phosphorus 4.9 mg/dL (2.5-4.5); Potassium 3.9 mmol/L (3.4-5.0); Sodium 128 mmol/L (137-145)
[2020-07-17 22:35] LABS: Lactic Acid Reflex 5.8 mmol/L (0.7-2.1)
[2020-07-17 23:06] LABS: Glucose Point of Care 82 (65-105)
[2020-07-18] VITALS (34 sets, daily range): BP systolic 95–127; BP diastolic 51–66; PULSE 69–97; RESP 16–28; TEMP 33–36.2; O2SAT 95–100; BMI 35.4
[2020-07-18 00:09] LABS: Glucose Point of Care 78 (65-105)
[2020-07-18 01:11] LABS: Glucose Point of Care 73 (65-105)
[2020-07-18] MEDS: ALBUMIN HUMAN 25% 12.5 GM/50ML 50 ML IVPB ×4 (01:51→20:03)
[2020-07-18 02:00] LABS: Glucose Point of Care 246 (65-105)
[2020-07-18 02:44] LABS: Creatine Kinase 1256 U/L (55-170)
[2020-07-18 02:45] LABS: IFOB Positive Control Positive; Immunochemical Fecal Occult Bl Positive (N)
[2020-07-18 02:47] LABS: Lactic Acid Reflex 6.5 mmol/L (0.7-2.1)
[2020-07-18 03:06] LABS: Glucose Point of Care 80 (65-105)
[2020-07-18 03:58] LABS: Glucose Point of Care 90 (65-105)
[2020-07-18 04:13] LABS: Fractional Inspired Oxygen 40 %; HCO3 ABG 18.2 mEq/l (22.0-26.0); Oxygen Content ABG 11.8 %vol (16.0-22.0); Oxygen Saturation ABG 94.1 % (95.0-100.0); Oxyhemoglobin 91.8 % THb (90.0-100.0); PCO2 ABG 35.1 mmHg (35.0-45.0); PO2 ABG 73.8 mmHg (80.0-100.0); PO2 FiO2 Ratio Arterial Blood 1.85 %; Total Hemoglobin 9.1 g/dL (12.0-18.0); pH ABG 7.333 (7.350-7.450)
[2020-07-18 04:17] LABS: Arterial Blood Gas Vent Mode CMV; Arterial Blood Gas Ventilator rate 14 /MIN; Device VENTILATOR; Site Drawn ARTLINE
[2020-07-18 04:18] LABS: Arterial Blood Gas PEEP 5 cmH2O; Arterial Blood Gas Tidal Volume 450 ml
[2020-07-18] MEDS: CENTRAL LINE FLUSH 10 ML IV PUSH ×4 (05:02→20:06)
[2020-07-18 05:16] LABS: Glucose Point of Care 69 (65-105)
[2020-07-18] MEDS: DEXTROSE 50% 25 GM/50 ML SYRINGE IV PUSH ×2 (05:16→08:09)
[2020-07-18 06:00] LABS: Glucose Point of Care 116 (65-105)
[2020-07-18 06:11] LABS: Hematocrit 22.4 % (42.0-52.0); Hemoglobin 7.9 g/dL (14.0-18.0); Immature Platelet Fraction Pct 2.8 % (0.9-11.2); Mean Corpuscular HGB Conc 35.3 g/dl (32-36); Mean Corpuscular Volume 87.8 fl (80-100); Mean Platelet Volume 8.7 fl (7.4-10.4); Red Blood Count 2.55 M/mm3 (4.6-6.20); Red Cell Distribution Width 16.6 % (11.5-14.5); White Blood Count 4.6 K/mm3 (4.5-10.0)
[2020-07-18 06:20] LABS: Creatine Kinase 1150 U/L (55-170)
[2020-07-18 06:22] LABS: Anion Gap 11 mmol/L (8-16); Blood Urea Nitrogen 25 mg/dL (9-20); Carbon Dioxide 21 mmol/L (22-30); Chloride 95 mmol/L (98-107); Estimated CRCL calculation 59 ml/min; Estimated Glomerular Filt Rate 56; Glucose 110 mg/dL (75-110); Magnesium 1.5 mg/dL (1.6-2.3); Phosphorus 5.1 mg/dL (2.5-4.5); Potassium 3.9 mmol/L (3.4-5.0); Sodium 127 mmol/L (137-145)
[2020-07-18 06:25] LABS: Platelet Count Result 20 k/mm3 (150-375)
[2020-07-18 06:31] LABS: Fibrinogen 155 mg/dl (215-510)
[2020-07-18 06:34] LABS: Lactic Acid Reflex 7.2 mmol/L (0.7-2.1)
[2020-07-18] MEDS: SODIUM BICARBONATE 8.4% 100 MEQ in WATER, STERILE FOR INJECTION 1,000 ML IV CONT ×2 (06:55→18:00)
[2020-07-18 06:57] LABS: Glucose Point of Care 93 (65-105)
[2020-07-18 08:08] LABS: Glucose Point of Care 66 (65-105)
[2020-07-18] MEDS: MAGNESIUM SULF 2 GM/WATER 50ML 2 GM/50 ML BAG IVPB (08:44)
[2020-07-18] MEDS: levETIRAcetam IV 750 MG in DEXTROSE 5% 100 ML 430 MG IVPB ×3 (08:56→23:58)
[2020-07-18 09:07] LABS: Reflex Lactic Acid Yes or No Add Lactic
[2020-07-18] MEDS: rifAXIMin 550 MG TABLET FEED TUBE ×2 (09:25→20:05)
[2020-07-18] MEDS: PANTOPRAZOLE SODIUM IV 40 MG VIAL IV PUSH ×2 (09:25→20:05)
[2020-07-18 09:59] LABS: Lactic Acid 6.5 mmol/L (0.7-2.1)
--- NOTE | 2020-07-18 12:48 | PM.IMPN ---
Progress Note: A&P Assessment and Plan (1) Cardiac arrest with successful resuscitation: Code(s): I46.9 - Cardiac arrest, cause unspecified Status: Acute Assessment and Plan: Patient had prolonged down time of 40+ minutes before ROSC obtained. Prognosis is poor. Continue current management. (2) Shock: Code(s): R57.9 - Shock, unspecified Status: Acute Assessment and Plan: Hypotension to cardiogenic shock. Patient currently on dopamine at low dose. Epinephrine and norepinephrine has been weaned off. Currently on IV fluids with sodium bicarb in albumin. Blood pressure remains stable. Continue to wean dopamine as blood pressure tolerates. Heart rate is improved as well with dopamine. (3) Acute respiratory failure: Code(s): J96.00 - Acute respiratory failure, unspecified whether with hypoxia or hypercapnia Status: Acute Assessment and Plan: Patient probably has aspiration pneumonia. On zosyn (4) Upper GI hemorrhage: Code(s): K92.2 - Gastrointestinal hemorrhage, unspecified Status: Acute Assessment and Plan: NG tube output concerning for upper GI bleed. patient on Protonix IV 40 mg Q12H. Monitor H&H closely. Transfuse as necessary. (5) Coagulopathy: Code(s): D68.9 - Coagulation defect, unspecified Status: Acute Assessment and Plan: Related to the cirrhosis INR elevated. D-dimer elevated and fibrinogen low. he also has thrombocytopenia which is getting worse.. FFP And cryoprecipitate has been ordered. Monitor INR last one was 4.1. (6) Cirrhosis of liver with ascites: Qualifiers: Hepatic cirrhosis type: unspecified hepatic cirrhosis Qualified Code(s): K74.60 - Unspecified cirrhosis of liver; R18.8 - Other ascites Code(s): K74.60 - Unspecified cirrhosis of liver; R18.8 - Other ascites Status: Acute Assessment and Plan: Cirrhosis is due to hepatitis C and hepatocellular carcinoma which is complicating his current medical issues. He has elevated transaminases and bilirubin level probably acute on chronic with acute process being shock liver. Ammonia level elevated 87 but unclear this is acute or chronic. Subjective Date/time seen: Sedated and intubated. 07/18/20 12:48 Exam Const: Other: Intubated, sedated and unresponsive. Neck: Neck: no JVD Resp: Auscultation: rhonchi Cardio: Rate: regular rate Rhythm: regular rhythm GI: Other: Non distended Skin: Other: No peripheral cyanosis, extremities are cold. Neuro: Other: Sedated, occasional myoclonic movements. Extrem: General: edema (Bilateral 1+ pitting edema ) Objective Data Vital Signs Vital Signs: Vital Signs - 24 hr 07/17/20 13:00 07/17/20 14:00 07/17/20 14:14 Temperature 90 F L 90.2 F L Pulse Rate 67 66 66 Respiratory Rate 18 18 Blood Pressure 135/74 140/74 144/77 H Pulse Oximetry 100 100 07/17/20 15:00 07/17/20 15:13 07/17/20 16:00 Temperature 91.2 F L 90.4 F L Pulse Rate 66 66 60 Respiratory Rate 18 16 Blood Pressure 134/69 127/66 Pulse Oximetry 100 100 100 07/17/20 17:00 07/17/20 17:39 07/17/20 18:00 Temperature 91.5 F L 90 F L Pulse Rate 60 58 L 58 L Respiratory Rate 20 20 Blood Pressure 132/69 124/64 Pulse Oximetry 100 100 100 07/17/20 19:00 07/17/20 19:55 07/17/20 20:00 Temperature 90.1 F L 92.1 F L Pulse Rate 61 57 L 60 Respiratory Rate 16 18 Blood Pressure 133/66 125/63 Pulse Oximetry 97 100 100 07/17/20 20:07 07/17/20 21:00 07/17/20 22:00 Temperature 90.8 F L 90.8 F L Pulse Rate 60 57 L 81 Respiratory Rate 18 18 Blood Pressure 130/62 110/55 L 101/50 L Pulse Oximetry 100 100 07/17/20 22:35 07/17/20 23:00 07/17/20 23:17 Temperature 92 F L 92.4 F L Pulse Rate 72 73 75 Respiratory Rate 18 20 21 H Blood Pressure 103/50 L 106/51 L 122/60 Pulse Oximetry 99 98 100 07/17/20 23:18 07/17/20 23:25 07/17/20 23:32 Temperat
--- NOTE | 2020-07-18 14:20 | WPDINTPN ---
Progress Note: A&P Assessment and Plan (1) Cardiac arrest with successful resuscitation: Code(s): I46.9 - Cardiac arrest, cause unspecified Status: Acute Assessment and Plan: cardiac arrest likely related to choking/asphyxia / airway obstruction - patient had ROSC after approximately 40 minutes down time - patient on the rewarming phase of the hypothermia protocol - CT head did not show any acute intracranial abnormalities - patient has been having intermittent myoclonic jerking, increase Keppra to q.8 hours (2) Acute respiratory failure: Code(s): J96.00 - Acute respiratory failure, unspecified whether with hypoxia or hypercapnia Status: Acute Assessment and Plan: acute respiratory failure likely related to airway obstruction, asphyxia from choking on hamburger - patient currently intubated on CMV mode of ventilation, peep of 5, 40% FiO2, - Chest x-ray and ABGs reviewed - patient is not on any sedation (3) Shock: Code(s): R57.9 - Shock, unspecified Status: Acute Assessment and Plan: RESOLVED: patient was in shock/ hypotension and bradycardia - PATIENT OFF DOPAMINE - blood pressure is within normal limits - blood cultures negative x2 - urine cultures pending (4) Upper GI hemorrhage: Code(s): K92.2 - Gastrointestinal hemorrhage, unspecified Status: Acute Assessment and Plan: patient with coffee-ground drainage from the OG tube, could be related to to coagulopathy and DIC - continue PPI q.12 hours IV (5) Coagulopathy: Code(s): D68.9 - Coagulation defect, unspecified Status: Acute Assessment and Plan: coagulopathy with elevated INR, low platelet counts, low fibrinogen level likely related to acute event as well as liver dysfunction from cirrhosis/hepatocellular carcinoma - patient received a total of 3 units of FFP, 2 units of cryoprecipitate, 1 unit of platelets and vitamin K (6) Cirrhosis of liver with ascites: Qualifiers: Hepatic cirrhosis type: unspecified hepatic cirrhosis Qualified Code(s): K74.60 - Unspecified cirrhosis of liver; R18.8 - Other ascites Code(s): K74.60 - Unspecified cirrhosis of liver; R18.8 - Other ascites Status: Acute Assessment and Plan: Cirrhosis is due to hepatitis C and hepatocellular carcinoma which is causing and complicating DIC and coagulopathy. - Elevated LFTs had total bilirubin could be related to with dysfunction, shock - Elevated ammonia level, will start lactulose and rifaximin - will repeat ammonia level in a.m. Additional Plan discussed with his brother Corona, updated with his condition and plan of care. discussed with him in detail regarding the rewarming phase of hypothermia and once he is rewarmed, will wait for him to wake up. He is also aware that the myoclonic jerks are in ominous sign post cardiac arrest. Discussed with him at length regarding code status, he requested patient to be do not resuscitate at this time code status: DNR critical care time spent: 39 minutes Due to a high probability of clinically significant, life threatening deterioration, the patient required my highest level of preparedness to intervene emergently and I personally spent this critical care time directly and personally managing the patient. This critical care time included obtaining a history; examining the patient; pulse oximetry; ordering and review of studies; arranging urgent treatment with development of a management plan; evaluation of patient's response to treatment; frequent reassessment; and discussions with other providers. It was exclusive of separately billable procedures and treating other patients and teaching time. Please see Assessment and Plan section and the rest of the note for further information on patient assessment and treatment Subjective Date/time seen: 07/18/20 14:20 Interval history: Reason for consult: cardiopulmonary arrest after
[2020-07-18] MEDS: LACTULOSE 20 GM/30 ML UDC FEED TUBE ×2 (16:42→20:06)
[2020-07-18 17:17] LABS: Glucose Point of Care 109 (65-105)
[2020-07-18 17:17] LABS: Glucose Point of Care 125 (65-105)
[2020-07-18 17:17] LABS: Glucose Point of Care 101 (65-105)
[2020-07-18 17:17] LABS: Glucose Point of Care 128 (65-105)
[2020-07-18 17:18] LABS: Glucose Point of Care 103 (65-105)
[2020-07-18 17:18] LABS: Glucose Point of Care 113 (65-105)
[2020-07-18 17:18] LABS: Glucose Point of Care 103 (65-105)
[2020-07-18 17:18] LABS: Glucose Point of Care 93 (65-105)
[2020-07-18 17:18] LABS: Glucose Point of Care 85 (65-105)
[2020-07-18 17:24] LABS: Glucose Point of Care 98 (65-105)
[2020-07-18 18:22] LABS: Hematocrit 22.2 % (42.0-52.0); Hemoglobin 7.8 g/dL (14.0-18.0); Immature Platelet Fraction Pct 2.4 % (0.9-11.2); Mean Corpuscular HGB Conc 35.1 g/dl (32-36); Mean Corpuscular Hemoglobin 30.7 pg (26-34); Mean Corpuscular Volume 87.4 fl (80-100); Mean Platelet Volume 10.6 fl (7.4-10.4); Red Blood Count 2.54 M/mm3 (4.6-6.20); White Blood Count 5.4 K/mm3 (4.5-10.0)
[2020-07-18 18:29] LABS: Alanine Aminotransferase 61 U/L (4-50); Albumin Level 2.4 g/dL (3.5-5.1); Alkaline Phosphatase 63 U/L (38-126); Anion Gap 12 mmol/L (8-16); Aspartate Amino Transferase 200 U/L (17-59); Bilirubin,Total 6.2 mg/dL (0.2-1.3); Blood Urea Nitrogen 31 mg/dL (9-20); Calcium 7.1 mg/dL (8.4-10.2); Carbon Dioxide 22 mmol/L (22-30); Chloride 92 mmol/L (98-107); Creatine Kinase 633 U/L (55-170); Estimated CRCL calculation 55 ml/min; Estimated Glomerular Filt Rate 51; Glucose 104 mg/dL (75-110); Potassium 3.9 mmol/L (3.4-5.0); Sodium 126 mmol/L (137-145)
[2020-07-18 18:41] LABS: Lactic Acid Reflex 5.4 mmol/L (0.7-2.1)
[2020-07-18 19:00] LABS: Platelet Count Result 23 k/mm3 (150-375)
[2020-07-18 19:11] LABS: Anisocytosis 2+ (NORMAL); Band Neutrophils Percent 23 % (0-6); Lymphocytes Absolute Manual 0.48 K/mm3 (1.1-4.5); Monocytes Absolute Manual 0.05 K/mm3 (0.1-0.90); Monocytes Percent Manual 1 % (3-9); Neutrophils Absolute Manual 4.86 K/mm3 (1.3-6.7); Neutrophils Percent Manual 67 % (46-73); Platelet Estimate Decreased (Adequate); Total Cells Counted 100
[2020-07-18 19:51] LABS: Glucose Point of Care 114 (65-105)
[2020-07-18 19:51] LABS: Glucose Point of Care 105 (65-105)
--- NOTE | 2020-07-18 20:57 | ECHO_ITS ---
Patient Info Name: Tip Monroy Age: 64 years : 1955 Gender: Male Ht: 67 in Wt: 226 lbs BSA: 2.24 m2 HR: 79 bpm BP: 124 / 62 mmHg Heart Rhythm: Sinus Rhythm Technical Quality: Good Exam Date: 07/18/2020 1:53 PM Exam Location: [facility] Patient Status: Inpatient Admit Date: 07/16/2020 Staff Ordering Physician: Matt Goins MD Mail Examiner: Sri Toth RDCS Attending Provider: Melinda Ortega DO Referring Physician: Buster GOTTI; Exam Type: CA echo doppler color flow Study Info Indications I46.9 - Cardiac arrest, cause unspecified Complete two-dimensional, color flow and Doppler transthoracic echocardiogram is performed. Summary 1. Left ventricular systolic function is hyperdynamic, estimated at >70%. 2. Left ventricular chamber dimension is normal. 3. Linear artifact in the right atrium suggestive of catheter(s), pacemaker lead(s), or ICD lead(s). 4. There is trivial pericardial effusion. Left Ventricle Left ventricular chamber dimension is normal. Left ventricular systolic function is hyperdynamic, estimated at >70%. The left ventricular diastolic function is grade I diastolic dysfunction. Right Ventricle Right ventricular chamber dimension is normal. Left Atria Left atrial chamber dimension is normal. Right Atria Right atrial chamber dimension is normal. Linear artifact in the right atrium suggestive of catheter(s), pacemaker lead(s), or ICD lead(s). Aortic Valve The aortic valve is normal. Pulmonic Valve The pulmonic valve is not well visualized. Mitral Valve The mitral valve has normal leaflets. Tricuspid Valve The tricuspid valve leaflets are normal. Pericardium/Pleural There is trivial pericardial effusion. Aorta The aortic root size at the sinus of Valsalva is normal. Left Ventricular Outflow Tract Name Value Normal LVOT 2D LVOT Diameter 2.0 cm LVOT Doppler LVOT Peak Gradient 17 mmHg LVOT Mean Gradient 8 mmHg LVOT VTI 32 cm LVOT VTI/AV VTI Ratio 1.1 LVOT Stroke Volume 97 ml LVOT CO 9.2 l/min LVOT CI 4.1 l/min/m2 Pulmonic Valve Name Value Normal RVOT Doppler RVOT Peak Gradient 5 mmHg PV Doppler PV Peak Gradient 9 mmHg Mitral Valve Name Value Normal MV Doppler MV Decel Menard 418 cm/s
--- NOTE | 2020-07-18 21:00 | ECG_ITS ---
Measurements Intervals [place] Rate: 86 P: 32 ME: 149 QRS: 12 QRSD: 101 T: -3 QT: 422 QTc: 508 Interpretive Statements SINUS RHYTHM LOW QRS VOLTAGE IN PRECORDIAL LEADS INCOMPLETE RIGHT BUNDLE BRANCH BLOCK BORDERLINE ST-T WAVE ABNORMALITY- ANT/INF LEADS PROLONGED QT INTERVAL BASELINE WANDER- I, III, AVF, V3-V6 ABNORMAL ECG Electronically Signed On 07-19-2020 7:26:06 CDT by Jem Linton D.O.
[2020-07-18 21:13] LABS: Reflex Lactic Acid Yes or No Add Lactic
[2020-07-18 22:21] LABS: Glucose Point of Care 105 (65-105)
[2020-07-18 22:40] LABS: Lactic Acid 4.9 mmol/L (0.7-2.1)
[2020-07-19] VITALS (21 sets, daily range): BP systolic 95–155; BP diastolic 44–74; PULSE 82–93; RESP 18–27; TEMP 36.2–36.8; O2SAT 92–100
[2020-07-19 00:06] LABS: Glucose Point of Care 109 (65-105)
[2020-07-19] MEDS: ALBUMIN HUMAN 25% 12.5 GM/50ML 50 ML IVPB ×4 (02:08→20:09)
[2020-07-19 02:16] LABS: Glucose Point of Care 122 (65-105)
[2020-07-19 04:05] LABS: Alveolar/Arterial O2 Gradient 166.4 mmHg; Fractional Inspired Oxygen 40 %; HCO3 ABG 22.3 mEq/l (22.0-26.0); Oxygen Content ABG 11.5 %vol (16.0-22.0); Oxygen Saturation ABG 96.8 % (95.0-100.0); Oxyhemoglobin 93.8 % THb (90.0-100.0); PCO2 ABG 31.6 mmHg (35.0-45.0); PO2 ABG 82.5 mmHg (80.0-100.0); PO2 FiO2 Ratio Arterial Blood 2.06 %; Total Hemoglobin 8.6 g/dL (12.0-18.0); pH ABG 7.467 (7.350-7.450)
[2020-07-19 04:10] LABS: Device VENTILATOR; Site Drawn ARTLINE
[2020-07-19 04:11] LABS: Arterial Blood Gas PEEP 5 cmH2O; Arterial Blood Gas Tidal Volume 450 ml; Arterial Blood Gas Vent Mode CMV; Arterial Blood Gas Ventilator rate 14 /MIN
[2020-07-19 04:20] LABS: Glucose Point of Care 140 (65-105)
[2020-07-19] MEDS: LACTULOSE 20 GM/30 ML UDC FEED TUBE ×3 (05:34→20:11)
[2020-07-19] MEDS: SODIUM BICARBONATE 8.4% 100 MEQ in WATER, STERILE FOR INJECTION 1,000 ML IV CONT ×2 (05:34→17:40)
[2020-07-19] MEDS: CENTRAL LINE FLUSH 10 ML IV PUSH ×4 (05:35→20:11)
[2020-07-19 05:56] LABS: Hemoglobin 7.4 g/dL (14.0-18.0); Immature Platelet Fraction Pct 2.5 % (0.9-11.2); Mean Corpuscular HGB Conc 35.2 g/dl (32-36); Mean Corpuscular Hemoglobin 31.1 pg (26-34); Mean Corpuscular Volume 88.2 fl (80-100); Mean Platelet Volume 9.9 fl (7.4-10.4); Red Blood Count 2.38 M/mm3 (4.6-6.20); Red Cell Distribution Width 17.2 % (11.5-14.5); White Blood Count 3.7 K/mm3 (4.5-10.0)
[2020-07-19 06:06] LABS: INR 4.1; Partial Thromboplastin Time 41.1 SECONDS (22.3-36.8)
[2020-07-19 06:07] LABS: Platelet Count Result 19 k/mm3 (150-375)
[2020-07-19 06:13] LABS: Alanine Aminotransferase 57 U/L (4-50); Albumin Level 2.4 g/dL (3.5-5.1); Alkaline Phosphatase 58 U/L (38-126); Anion Gap 11 mmol/L (8-16); Aspartate Amino Transferase 170 U/L (17-59); Bilirubin,Total 6.1 mg/dL (0.2-1.3); Blood Urea Nitrogen 36 mg/dL (9-20); Calcium 6.9 mg/dL (8.4-10.2); Carbon Dioxide 25 mmol/L (22-30); Chloride 90 mmol/L (98-107); Estimated CRCL calculation 49 ml/min; Estimated Glomerular Filt Rate 44; Glucose 118 mg/dL (75-110); Magnesium 1.8 mg/dL (1.6-2.3); Phosphorus 4.5 mg/dL (2.5-4.5); Potassium 3.6 mmol/L (3.4-5.0); Sodium 126 mmol/L (137-145)
[2020-07-19 06:14] LABS: Ammonia 22 umol/L (9-30)
[2020-07-19 06:19] LABS: Fibrinogen 142 mg/dl (215-510)
[2020-07-19 06:23] LABS: D Dimer 13.96 ug/mL (<0.48)
[2020-07-19] MEDS: levETIRAcetam IV 750 MG in DEXTROSE 5% 100 ML 430 MG IVPB (08:54)
[2020-07-19] MEDS: PANTOPRAZOLE SODIUM IV 40 MG VIAL IV PUSH ×2 (09:04→20:10)
[2020-07-19] MEDS: rifAXIMin 550 MG TABLET FEED TUBE ×2 (09:05→20:10)
--- NOTE | 2020-07-19 09:27 | WPDINTPN ---
Progress Note: A&P Assessment and Plan (1) Cardiac arrest with successful resuscitation: Code(s): I46.9 - Cardiac arrest, cause unspecified Status: Acute Assessment and Plan: cardiac arrest likely related to choking/asphyxia / airway obstruction - patient had ROSC after approximately 40 minutes down time - patient was rewarmed 07/18/2020 - CT head did not show any acute intracranial abnormalities - on Keppra for myoclonic jerks - will obtain EEG this morning (2) Acute respiratory failure: Code(s): J96.00 - Acute respiratory failure, unspecified whether with hypoxia or hypercapnia Status: Acute Assessment and Plan: acute respiratory failure likely related to airway obstruction, asphyxia from choking on hamburger - patient currently intubated on CMV mode of ventilation, peep of 5, 40% FiO2, - Chest x-ray and ABGs reviewed - patient is not on any sedation (3) Shock: Code(s): R57.9 - Shock, unspecified Status: Acute Assessment and Plan: RESOLVED: patient was in shock/ hypotension and bradycardia - PATIENT OFF DOPAMINE - blood pressure is within normal limits - blood cultures negative x2 - urine cultures pending (4) Upper GI hemorrhage: Code(s): K92.2 - Gastrointestinal hemorrhage, unspecified Status: Acute Assessment and Plan: patient with coffee-ground drainage from the OG tube, could be related to to coagulopathy and DIC - continue PPI q.12 hours IV (5) Coagulopathy: Code(s): D68.9 - Coagulation defect, unspecified Status: Acute Assessment and Plan: coagulopathy with elevated INR, low platelet counts, low fibrinogen level likely related to acute event as well as liver dysfunction from cirrhosis/hepatocellular carcinoma - patient received a total of 3 units of FFP, 2 units of cryoprecipitate, 1 unit of platelets and vitamin K (6) Cirrhosis of liver with ascites: Qualifiers: Hepatic cirrhosis type: unspecified hepatic cirrhosis Qualified Code(s): K74.60 - Unspecified cirrhosis of liver; R18.8 - Other ascites Code(s): K74.60 - Unspecified cirrhosis of liver; R18.8 - Other ascites Status: Acute Assessment and Plan: Cirrhosis is due to hepatitis C and hepatocellular carcinoma which is causing and complicating DIC and coagulopathy. - Elevated LFTs had total bilirubin could be related to with dysfunction, shock - Elevated ammonia level, will start lactulose and rifaximin - ammonia levels normal this morning Additional Plan discussed with his brother Corona, updated with his condition and plan of care. code status: DNR critical care time spent: 32 minutes Due to a high probability of clinically significant, life threatening deterioration, the patient required my highest level of preparedness to intervene emergently and I personally spent this critical care time directly and personally managing the patient. This critical care time included obtaining a history; examining the patient; pulse oximetry; ordering and review of studies; arranging urgent treatment with development of a management plan; evaluation of patient's response to treatment; frequent reassessment; and discussions with other providers. It was exclusive of separately billable procedures and treating other patients and teaching time. Please see Assessment and Plan section and the rest of the note for further information on patient assessment and treatment Subjective Date/time seen: 07/19/20 09:27 Interval history: Reason for consult: cardiopulmonary arrest after choking, myoclonic jerks, acute respiratory failure, coagulopathy patient seen and examined, remains intubated, on CMV mode of ventilation, 40% FiO2, peep of 5. Patient is off pressors. Not on any sedation. Urine output has been adequate, patient is normothermic. patient does not open his eyes to name will follow simple commands. Left pupil midsize and not reacti
--- NOTE | 2020-07-19 11:35 | PCDIET ---
ICU Rounding Note: Patient remains NPO with plan for EEG today. Patient's brother stated in rounds the family has decided to withdraw care if patient has no meaningful chance of recovery. If aggressive care is continued, will recommend initiating nutrition support, when able/appropriate. Last recorded weight is 103.1kg which is increased from last review. +I/O. Bowel Motility: BM x 1 today. Labs Reviewed: Hgb (7.4), Hct (21.0), Glu (140), BUN (36), Cr (1.6), Na (126), Alb (2.4), Odell Ca (8.18) Meds Noted: Albumin, Lactulose, Zosyn, Water/100mEq Sodium Bicarbonate at 100mL/hr, Keppra, Protonix Additional Notes: No documented skin breakdown. Following daily in ICU rounds. Assessing/reassessing every 3 days.
[2020-07-19 12:38] LABS: Glucose Point of Care 132 (65-105)
--- NOTE | 2020-07-19 13:30 | NEURO_ITS ---
TEST: ELECTROENCEPHALOGRAM DIAGNOSIS: CARDIAC ARREST PATIENT NUMBER: [id number] EEG NUMBER: [id number] RECORDING DATE: 07/19/20 CLINICAL HISTORY: Status post cardiac arrest followed by hypothermia protocol. Patient has been off sedation and remains unresponsive. CONDITION OF RECORDING: Comatose EEG DESCRIPTION: The whole record consists of spike and sharp wave discharge at the rate of 2.5 per second with no changes throughout the tracing. IMPRESSION: Significantly abnormal record. 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 MTDD
--- NOTE | 2020-07-19 14:33 | PM.IMPN ---
Progress Note: A&P Assessment and Plan (1) Cardiac arrest with successful resuscitation: Code(s): I46.9 - Cardiac arrest, cause unspecified Status: Acute Assessment and Plan: Patient had prolonged down time of 40+ minutes before ROSC obtained. Prognosis is poor. EEG today.. (2) Shock: Code(s): R57.9 - Shock, unspecified Status: Acute Assessment and Plan: Hypotension to cardiogenic shock. Patient currently on dopamine at low dose. Epinephrine and norepinephrine has been weaned off. (3) Acute respiratory failure: Code(s): J96.00 - Acute respiratory failure, unspecified whether with hypoxia or hypercapnia Status: Acute Assessment and Plan: Patient probably has aspiration pneumonia. On zosyn (4) Upper GI hemorrhage: Code(s): K92.2 - Gastrointestinal hemorrhage, unspecified Status: Acute Assessment and Plan: NG tube output concerning for upper GI bleed. patient on Protonix IV 40 mg Q12H. Monitor H&H closely. Transfuse as necessary. (5) Coagulopathy: Code(s): D68.9 - Coagulation defect, unspecified Status: Acute Assessment and Plan: Related to the cirrhosis INR elevated. D-dimer elevated and fibrinogen low. he also has thrombocytopenia which is getting worse.. (6) Cirrhosis of liver with ascites: Qualifiers: Hepatic cirrhosis type: unspecified hepatic cirrhosis Qualified Code(s): K74.60 - Unspecified cirrhosis of liver; R18.8 - Other ascites Code(s): K74.60 - Unspecified cirrhosis of liver; R18.8 - Other ascites Status: Acute Assessment and Plan: Cirrhosis is due to hepatitis C and hepatocellular carcinoma which is complicating his current medical issues. Subjective Date/time seen: Intubated, unresponsive. 07/19/20 14:33 Exam Const: Other: Intubated, sedated and unresponsive. Neck: Neck: no JVD Resp: Auscultation: rhonchi Cardio: Rate: regular rate Rhythm: regular rhythm GI: Other: Non distended : Other: Significant scrotal edema Skin: Other: No peripheral cyanosis, extremities are cold. Neuro: Other: Sedated, occasional myoclonic movements. Extrem: General: edema (Bilateral 1+ pitting edema ) Other: 3+ edema up to the abdomen, anasarca. Objective Data Vital Signs Vital Signs: Vital Signs - 24 hr 07/18/20 14:55 07/18/20 15:00 07/18/20 16:00 Temperature 96.2 F L 97.2 F L Pulse Rate 88 88 94 Respiratory Rate 22 H 23 H Blood Pressure 123/61 115/57 L Pulse Oximetry 99 97 97 07/18/20 16:52 07/18/20 17:00 07/18/20 18:00 Temperature 97.2 F L 96.8 F L Pulse Rate 90 88 90 Respiratory Rate 23 H 22 H Blood Pressure 120/60 114/56 L Pulse Oximetry 98 99 97 07/18/20 20:00 07/18/20 20:33 07/18/20 22:00 Temperature 96 F L 96.6 F L Pulse Rate 85 89 83 Respiratory Rate 28 H 24 H Blood Pressure 113/57 L 120/61 Pulse Oximetry 97 97 99 07/18/20 23:19 07/19/20 00:00 07/19/20 02:00 Temperature 97.2 F L 97.1 F L Pulse Rate 88 90 87 Respiratory Rate 24 H 20 Blood Pressure 128/63 120/60 Pulse Oximetry 97 98 97 07/19/20 02:24 07/19/20 04:00 07/19/20 04:28 Temperature 97.6 F Pulse Rate 87 93 93 Respiratory Rate 24 H Blood Pressure 155/74 H Pulse Oximetry 97 100 100 07/19/20 06:00 07/19/20 08:00 07/19/20 08:45 Temperature 97.6 F Pulse Rate 87 87 89 Respiratory Rate 18 27 H Blood Pressure 108/56 L 113/58 L Pulse Oximetry 98 97 99 07/19/20 10:00 07/19/20 11:58 07/19/20 12:00 Temperature 98.3 F Pulse Rate 90 91 90 Respiratory Rate 24 H 25 H Blood Pressure 98/48 L 103/48 L Pulse Oximetry 93 94 94 07/19/20 14:00 Temperature Pulse Rate 89 Respiratory Rate 23 H Blood Pressure 95/44 L Pulse Oximetry 94 Intake/Output Intake/Output: Intake & Output 07/16/20 07/17/20 07/18/20 07/19/20 23:59 23:59 23:59 23:59 Intake Total 250 3736.0 3519.5 1667.5 Output Total 300 9
--- NOTE | 2020-07-19 15:27 | WPDNEURCNPN ---
Assessment and Plan Assessment and plan (1) Coagulopathy: Code(s): D68.9 - Coagulation defect, unspecified Status: Acute (2) Acute respiratory failure: Code(s): J96.00 - Acute respiratory failure, unspecified whether with hypoxia or hypercapnia Status: Acute (3) Shock: Code(s): R57.9 - Shock, unspecified Status: Acute (4) Upper GI hemorrhage: Code(s): K92.2 - Gastrointestinal hemorrhage, unspecified Status: Acute (5) Hypotension: Qualifiers: Hypotension type: other hypotension type Qualified Code(s): I95.89 - Other hypotension Code(s): I95.9 - Hypotension, unspecified Status: Acute (6) Cirrhosis of liver with ascites: Qualifiers: Hepatic cirrhosis type: unspecified hepatic cirrhosis Qualified Code(s): K74.60 - Unspecified cirrhosis of liver; R18.8 - Other ascites Code(s): K74.60 - Unspecified cirrhosis of liver; R18.8 - Other ascites Status: Acute (7) Cardiac arrest with successful resuscitation: Code(s): I46.9 - Cardiac arrest, cause unspecified Status: Acute (8) Coma: Code(s): R40.20 - Unspecified coma Status: Acute (9) Non-convulsive status epilepticus: Code(s): G40.901 - Epilepsy, unspecified, not intractable, with status epilepticus Status: Acute Additional Plan case discussed with the box storage worker the EEG is very ominous in a post cardiac arrest patient and the prognosis is significantly poor also in consideration is the fact that he has underlying hepatocellular carcinoma prognosis for any meaningful recovery is very remote at this point we can increase the dose of Keppra and if the family is deciding to take him of the life support system that will be appropriate thing to do Consult date: 07/19/20 Time Seen: 15:00 HPI: Tip Monroy is a 64 year old male who is on the ventilator and the only thing going for him is breathing he is not sedated and is in deep coma without any evidence of seizure activity the bedside EEG shows continuous epileptiform discharges somewhere between 2 to 2.5 hertz with predominance over the frontal lobes the patient is status post cardiac arrest and prolonged down time also has underlying hepatocellular carcinoma the history was obtained records were reviewed and the case was discussed with the box storage worker Review of Systems Review of Systems: LATA unobtainable: Yes unobtainable due to endotracheal tube and unobtainable due to mental status PMFSH Past Medical History Medical History Chronic anemia Hepatitis C Hepatocellular carcinoma Liver failure Thrombocytopenia Umbilical hernia Surgical History Surgical History Surgical history unknown Family History Family History Other Unknown family medical history Social History Social History Social History: the patient's family history surgical history and social history are unobtainable. He is intubated and unresponsive. Smoking status: Unknown if ever smoked Alcohol intake: unknown Substance use: unknown Spiritual care concerns: No Meds Home Medications and Allergies Home Medications Medication Instructions Recorded Confirmed Type benztropine 1 mg PO HS 07/17/20 07/17/20 History calcium carbonate 500 mg PO DAILY 07/17/20 07/17/20 History calcium carbonate-vitamin D3 1 tablet PO DAILY 07/17/20 07/17/20 History [Os-Rian 500 + D3] cholecalciferol (vitamin D3) 25 mcg PO DAILY 07/17/20 07/17/20 History [Vitamin D3] haloperidol decanoate 150 mg IM MONTHLY 07/17/20 07/17/20 History insulin glargine [Lantus U-100 16 unit SUBCUT HS 07/17/20 07/17/20 History Insulin] insulin lispro 5 unit SUBCUT TIDWMEAL 07/17/20 07/17/20 History lactulose [Enulose] 67.5 g PO TID
[2020-07-19 17:06] LABS: Glucose Point of Care 155 (65-105)
[2020-07-19] MEDS: levETIRAcetam 1000MG/NACL100ML 1,000 MG/100 ML BAG 400 MG IVPB (17:36)
[2020-07-19 20:20] LABS: Glucose Point of Care 142 (65-105)
[2020-07-20] VITALS (11 sets, daily range): BP systolic 108–115; BP diastolic 53–58; PULSE 72–85; RESP 18–26; TEMP 35.7–36.3; O2SAT 92–94
[2020-07-20] MEDS: levETIRAcetam 1000MG/NACL100ML 1,000 MG/100 ML BAG 400 MG IVPB ×2 (00:02→08:25)
[2020-07-20 00:13] LABS: Glucose Point of Care 154 (65-105)
[2020-07-20] MEDS: ALBUMIN HUMAN 25% 12.5 GM/50ML 50 ML IVPB ×2 (02:55→08:23)
[2020-07-20] MEDS: SODIUM BICARBONATE 8.4% 100 MEQ in WATER, STERILE FOR INJECTION 1,000 ML IV CONT (02:56)
[2020-07-20 04:03] LABS: Glucose Point of Care 159 (65-105)
[2020-07-20 05:22] LABS: Alveolar/Arterial O2 Gradient 119.6 mmHg; Base Excess ABG 2.4 mEq/l (+/-2.0); Fractional Inspired Oxygen 30 %; HCO3 ABG 24.4 mEq/l (22.0-26.0); Oxygen Content ABG 9.2 %vol (16.0-22.0); Oxyhemoglobin 90.3 % THb (90.0-100.0); PCO2 ABG 27.3 mmHg (35.0-45.0); PO2 ABG 62.2 mmHg (80.0-100.0); PO2 FiO2 Ratio Arterial Blood 2.07 %
[2020-07-20 05:25] LABS: Total Hemoglobin 7.2 g/dL (12.0-18.0); pH ABG 7.569 (7.350-7.450)
[2020-07-20] MEDS: CENTRAL LINE FLUSH 10 ML IV PUSH (05:35)
[2020-07-20] MEDS: LACTULOSE 20 GM/30 ML UDC FEED TUBE (05:35)
[2020-07-20 05:49] LABS: Mean Corpuscular Hemoglobin 31.8 pg (26-34); Mean Corpuscular Volume 88.6 fl (80-100); Mean Platelet Volume 10.8 fl (7.4-10.4); Red Blood Count 2.01 M/mm3 (4.6-6.20); Red Cell Distribution Width 17.2 % (11.5-14.5)
[2020-07-20 05:51] LABS: Hematocrit 17.8 % (42.0-52.0); Hemoglobin 6.4 g/dL (14.0-18.0); Platelet Count Result 16 k/mm3 (150-375)
[2020-07-20 05:58] LABS: INR 4.4; Prothrombin Time 41.2 Seconds (11.1-14.7)
[2020-07-20 05:59] LABS: Partial Thromboplastin Time 41.6 SECONDS (22.3-36.8)
[2020-07-20 06:00] LABS: Alanine Aminotransferase 49 U/L (4-50); Albumin Level 2.2 g/dL (3.5-5.1); Alkaline Phosphatase 43 U/L (38-126); Anion Gap 11 mmol/L (8-16); Aspartate Amino Transferase 121 U/L (17-59); Bilirubin,Total 6.7 mg/dL (0.2-1.3); Blood Urea Nitrogen 47 mg/dL (9-20); Calcium 7.1 mg/dL (8.4-10.2); Carbon Dioxide 26 mmol/L (22-30); Chloride 88 mmol/L (98-107); Estimated CRCL calculation 44 ml/min; Estimated Glomerular Filt Rate 38; Glucose 153 mg/dL (75-110); Magnesium 1.9 mg/dL (1.6-2.3); Phosphorus 3.6 mg/dL (2.5-4.5); Potassium 3.1 mmol/L (3.4-5.0); Sodium 125 mmol/L (137-145)
[2020-07-20 06:14] LABS: Fibrinogen 96 mg/dl (215-510)
[2020-07-20 06:16] LABS: D Dimer 6.65 ug/mL (<0.48)
--- NOTE | 2020-07-20 06:17 | PC.NURSE ---
PER SUPERVISOR ELECTRIC REQUEST, NURSING ATTEMPTED TO CONTACT FAMILY ABOUT CURRENT PATIENT STATUS, ONGOING CARE PLAN AND GOALS. THE ONLY CONTACT'S PHONE NUMBER WENT STRAIGHT TO [employer]. PATIENT CURRENT CBC COUNTS ARE LOW AND TRENDING DOWN. SUPERVISOR ELECTRIC NOTIFIED OF CURRENT STATUS. WILL CONTINUE TO MONITOR PATIENT FOR CHANGES IN STATUS AND WILL FOLLOW CURRENT PLAN OF CARE.
[2020-07-20 07:48] LABS: Arterial Blood Gas PEEP 5 cmH2O; Arterial Blood Gas Tidal Volume 450 ml; Arterial Blood Gas Vent Mode CMV; Arterial Blood Gas Ventilator rate 14 /MIN; Device VENTILATOR; Site Drawn ARTLINE
[2020-07-20] MEDS: rifAXIMin 550 MG TABLET FEED TUBE (08:25)
[2020-07-20] MEDS: PANTOPRAZOLE SODIUM IV 40 MG VIAL IV PUSH (08:25)
[2020-07-20 09:38] LABS: Glucose Point of Care 154 (65-105)
--- NOTE | 2020-07-20 11:14 | WPDINTPN ---
Progress Note: A&P Assessment and Plan (1) Cardiac arrest with successful resuscitation: Code(s): I46.9 - Cardiac arrest, cause unspecified Status: Acute Assessment and Plan: cardiac arrest likely related to choking/asphyxia / airway obstruction - patient had ROSC after approximately 40 minutes down time - patient was rewarmed 07/18/2020 - CT head did not show any acute intracranial abnormalities - on Keppra for myoclonic jerks - EEG 07/19/2020: EEG shows continuous epileptiform discharges somewhere between 2 to 2.5 hertz with predominance over the frontal lobes - Discussed with Neurology, prognosis is significantly poor and meaningful recovery is very remote given his post cardiac arrest EEG. (2) Acute respiratory failure: Code(s): J96.00 - Acute respiratory failure, unspecified whether with hypoxia or hypercapnia Status: Acute Assessment and Plan: acute respiratory failure likely related to airway obstruction, asphyxia from choking on hamburger - patient currently intubated on CMV mode of ventilation, peep of 5, 30% FiO2, - Chest x-ray and ABGs reviewed - patient is not on any sedation (3) Shock: Code(s): R57.9 - Shock, unspecified Status: Acute Assessment and Plan: RESOLVED: patient was in shock/ hypotension and bradycardia - PATIENT OFF DOPAMINE - blood pressure is within normal limits - blood cultures negative x2 - urine cultures pending (4) Upper GI hemorrhage: Code(s): K92.2 - Gastrointestinal hemorrhage, unspecified Status: Acute Assessment and Plan: patient with coffee-ground drainage from the OG tube, could be related to to coagulopathy and DIC - continue PPI q.12 hours IV (5) Coagulopathy: Code(s): D68.9 - Coagulation defect, unspecified Status: Acute Assessment and Plan: coagulopathy with elevated INR, low platelet counts, low fibrinogen level likely related to acute event as well as liver dysfunction from cirrhosis/hepatocellular carcinoma - patient received a total of 3 units of FFP, 2 units of cryoprecipitate, 1 unit of platelets and vitamin K (6) Cirrhosis of liver with ascites: Qualifiers: Hepatic cirrhosis type: unspecified hepatic cirrhosis Qualified Code(s): K74.60 - Unspecified cirrhosis of liver; R18.8 - Other ascites Code(s): K74.60 - Unspecified cirrhosis of liver; R18.8 - Other ascites Status: Acute Assessment and Plan: Cirrhosis is due to hepatitis C and hepatocellular carcinoma which is causing and complicating DIC and coagulopathy. - Elevated LFTs had total bilirubin could be related to with dysfunction, shock - Elevated ammonia level, will start lactulose and rifaximin - ammonia levels normal this morning Additional Plan discussed with his brother Corona, Updated him with the EEG reported and discussion I had with Neurology. I answered all questions. Breath stated that he has spoken to his other 2 siblings, they will be withdrawing support today after the siblings come and visit the patient. I explained to the brother the process of withdrawal of care and comfort measures. code status: DNR critical care time spent: 34 minutes Due to a high probability of clinically significant, life threatening deterioration, the patient required my highest level of preparedness to intervene emergently and I personally spent this critical care time directly and personally managing the patient. This critical care time included obtaining a history; examining the patient; pulse oximetry; ordering and review of studies; arranging urgent treatment with development of a management plan; evaluation of patient's response to treatment; frequent reassessment; and discussions with other providers. It was exclusive of separately billable procedures and treating other patients and teaching time. Please see Assessment and Plan section and the rest of the note for further information on
--- NOTE | 2020-07-20 11:32 | PCDIET ---
ICU Rounding Note: Patient remains NPO with plan to withdraw care later today. RD will provide nutrition support recommendations, if plan of care changes and aggressive nutritional therapy is desired. Last recorded weight is 103.1kg which is unchanged. Bowel Motility: BM x 3 today. Labs Reviewed: Hgb (6.4), Hct (17.8), Glu (159), BUN (47), Cr (1.8), K (3.1), Na (125), Alb (2.2), Cl (88) Meds Noted: Albumin, Dextrose 50% Syringe, Lactulose, Keppra, Protonix, Zosyn Additional Notes: IV with sodium bicarbonate discontinued. Left torso and right arm with skin tears. Following daily in ICU rounds. Assessing/reassessing every 3 days.
[2020-07-20] MEDS: MORPHINE SULFATE 4 MG/ML INJ 5 MG IV PUSH (13:56)
--- NOTE | 2020-07-20 14:21 | PC.NURSE ---
After pt's siblings here, and brother Corona returned, Corona stated he and family was ready to withdrawal support, notified Dr. Deleon, recieved new orders, RT notified, see mar for meds given, pt extubated at 1418 no blood pressure, no pulse, asystole on monitor, Refinery Operator Crude Unit with brother
--- NOTE | 2020-07-20 14:42 | PM.DDS ---
Discharge Sum: Prov Provider Primary care physician: Feliberto Pelayo MD Admitting provider: Melinda Ortega DO Consults: 07/16/20 21:11 Consult to Physician Routine Comment: notified per ED physician Consulting Provider: Willow Deleon call circuit worker/MD group to consult: Pancho Reason for consultation: cardiac arrest, respiratory arrest Has provider been notified: Yes 07/19/20 14:14 Consult to Physician Routine Comment: dr grijalva is aware of the consult Consulting Provider: Kyaw Grijalva call circuit worker/MD group to consult: DR. GRIJALVA Reason for consultation: Cardiac arrest, EEG Has provider been notified: Yes Discharge Sum: Diag Contributing Factors (1) Coma: (2) Coagulopathy: (3) Acute respiratory failure: (4) Shock: (5) Upper GI hemorrhage: (6) Cirrhosis of liver with ascites: (7) Non-convulsive status epilepticus: Discharge Sum: Summary Date and Time Date of admission: 07/16/20 21:10 Date of : 07/20/20 Time of : 14:18 Summary Details: 64 YO with history of cirrhosis and hepatocellular carcinoma [place] [facility] from [place] after he aspirated on a piece of food while eating a hamburger and went into cardiac arrest PEA. Ems Were called to the [place] where he received several rounds of epinephrine , CPR and had the piece of food retrieved from his airway. From the time he went into cardiac arrest and ROSC more than 40 minutes elapsed. He was admitted to the ICU where he was on mechanical ventilation , his clinical situation got complicated with hepatic coagulopathy and a GI bleed . He was also having myoclonal movements most likely from his anoxic brain injury, he was seen by neurology, had an EEG that showed continuos epileptiform discharges likely related to his anoxic injury. Given the poor prognosis and the low probability of a meaningful recovery his family decided to withdraw supportive care. He approximately 10 minutes after the mechanical ventilation was stopped. Attempted to inform PCP but I was not able to leave a voice message on his phone. Additional Data Confirmation of as documented by pronouncing clinician: no pulse, no respirations and no heart sounds Family: at bedside Additional persons at bedside: safety associate Attending/PCP notified?: No Attending physician: Melinda Ortega DO Was code activated?: No forensic computer examiner notified?: Yes Advance directives: No Hospice patient?: No
--- NOTE | 2020-07-20 15:41 | PC.NURSE ---
BROTHER BRIANDA REQUESTING MARKETING ASSISTANT MANAGER BE NOTIFIED OF INCIDENT LEADING UP TO CARDIAC ARREST AT [place]. 1510-MARKETING ASSISTANT MANAGER HERE TO TALK TO BROTHER BRIANDA.
== END 2020-07-20 14:18 | disposition expired | DRG 208 ==
LOC: ANHED 21:51 → ANHICU 07-17 02:50
PROVIDERS: Internal Medicine; Admitting Provider Internal Medicine; Emergency Provider Emergency Medicine; PCP Family Medicine; Visit Provider Hospitalist
DX: T17.820A Food in other parts of respiratory tract causing asphyxiation, initial encounter (principal); J96.00 Acute respiratory failure, unspecified whether with hypoxia or hypercapnia; R40.20 Unspecified coma; R57.9 Shock, unspecified; C22.0 Liver cell carcinoma; R18.8 Other ascites; K92.2 Gastrointestinal hemorrhage, unspecified; D68.4 Acquired coagulation factor deficiency; G93.1 Anoxic brain damage, not elsewhere classified; I46.8 Cardiac arrest due to other underlying condition; G40.901 Epilepsy, unspecified, not intractable, with status epilepticus; K74.69 Other cirrhosis of liver; B19.20 Unspecified viral hepatitis C without hepatic coma; Z66 Do not resuscitate
CPT/HCPCS: 36415; 36430; 36556; 36600; 70450; 71045; 80048; 80053; 80076; 80307; 82140; 82274; 82375; 82550; 82805; 82948; 83050; 83605; 83735; 84100; 84484; 85025; 85027; 85055; 85380; 85384; 85610; 85730; 86850; 86900; 86901; 86923; 87040; 87086; 92950; 93005; 93306; 94002; 94003; 95816; 99291; A9270; C1751; C9113; J0171; J1265; J1953; J2060; J2270; J2543; J3430; J3475; J7030; J7060; P9012; P9016; P9017; P9034; P9047